=== PATIENT | male | born 1980 | race Caucasian/White ===

== ENCOUNTER 2025-07-01 12:48 | Emergency (ER) | payer OTHER, SELFPAY ==
[2025-07-01 12:50] VITALS: BP 116/87
--- NOTE | 2025-07-01 14:19 | ED.GENMED ---
History of Present Illness
General
Chief Complaint: Cough
Source: patient
Exam Limitations: none
Time Seen by Provider: 07/01/25 14:19
Nursing documentation reviewed up to this point in time: agreed with
History of Present Illness
History of Present Illness:
The patient is a very pleasant 45-year-old man who complains of several days of bodyaches, chills, intermittent fever and cough. Patient reports that his fever spiked today at 101. He denies sick contacts. He denies recent travel and
hospitalization. He denies shortness of breath. He denies chest pain. Patient reports he is able to eat and drink
Past History
Past History
ED Past Medical History: None
ED Past Surgical History: Other
Social History
Tobacco: Non-smoker
Alcohol: Other
Drug: None
Personal:
Living: with family
Employment: Employed
Family History
Family History: Other
Review of Systems
Review of Systems
Allergies reviewed?: Yes
All Other Systems: ROS reviewed and negative except as documented in HPI and ROS
Constitutional: Reports fever, fatigue and chills
EENT: Reports no symptoms
Respiratory: Reports cough
Cardiac: Reports no symptoms
ABD/GI: Reports no symptoms
: Reports no symptoms
Musculoskeletal: Reports no symptoms
Skin: Reports no symptoms
Neurological: Reports no symptoms
Endocrine: Reports no symptoms
Hematologic/Lymphatic: Reports no symptoms
Psychiatric: Reports no symptoms
Phy Exam
Physical Exam
Physical Exam:
Physical Exam
General: no apparent distress, not acutely ill, nontoxic, conversational and smiling
Neck: supple. no meningeal signs. Dry mucous membrane
Heart: Tachycardic, no murmur
Lungs: no acute respiratory distress. clear bilaterally
Abdomen: normal bowel sounds. not tender. no CVAT
Neuro: alert and oriented. no focal neurological deficits
Skin: no rash
Psychiatric: well kept. interactive and cooperative
Extremities: no edema. no calf tenderness. negative homans. good distal pulses
Course
Orders/Labs/Results
Orders:
Orders
07/01/25 12:50
CR Chest - 2 Views Urgent
Comment:
Reason For Exam: cough
07/01/25 15:02
0.9% Sodium Chloride 1000 ml [Nss] 1,000 ml IV BOLUS
Doxycycline [Vibramycin] 100 mg PO NOW STA
07/01/25 15:51
Complete Blood Count/With Diff Urgent
Comprehensive Metabolic Panel Urgent
07/01/25 16:06
Cardiac Monitoring- Treatment ONCE
Abnormal Lab Results
07/01/25
15:51
RBC 4.25 L 10^6/uL
(4.70-6.10)
Hct 38.7 L %
(39.0-52.0)
MCH 32.2 H pg
(27.0-31.0)
RDW 10.9 L %
(11.5-14.5)
Absolute Monos (auto) 1.3 H 10^3/uL
(0.1-0.6)
Lymphocytes % 17.6 L %
(20.5-51.1)
Monocytes % 14.1 H %
(1.7-9.3)
Glucose 104 H mg/dl
(70-99)
Alkaline Phosphatase 143 H U/L
(38-126)
07/01/25 15:51
07/01/25 15:51
Vital Signs
Initial and Last Documented VS:
Initial Vital Signs
Temp Pulse Resp BP Pulse Ox
98.3 F 120 18 116/87 97
07/01/25 12:50 07/01/25 12:50 07/01/25 12:50 07/01/25 12:50 07/01/25 12:50
Last Documented Vital Signs
Temp Pulse Resp BP Pulse Ox
98.3 F 95 20 125/78 99
07/01/25 12:50 07/01/25 17:16 07/01/25 17:16 07/01/25 17:16 07/01/25 17:16
MDM/Problems Addressed
Differential Diagnosis Includes:
Acute viral illness, acute pneumonia
MDM/Problems Addressed:
Patient presents with acute fever and cough
*Radiology
Radiology exam reviewed: preliminary read by ED provider (Right-sided infiltrate)
*Pulse Oximetry
SaO2: 97
Oxygen Mode of Delivery: Room air
Patient hypoxic: no
Comment: Not hypoxic, 97% on room air
*EKG
Interpreted by ED Provider?: NA
*Critical Care Note
Total Time (30-74mins, 75-104mins- exclusive of procedures): Not Applicable
Data Reviewed
Source: patient
Update Note
Update Note:
5:15 PM patient's heart rate is 94. Pulse ox 97% on room air. Patient reports he still feels well. He has not been hypotensive and appears nontoxic and well.
ED Attending Note
-
Portions of this chart may have been created with voice recognition software.� Occasional wrong word or��sound alike� substitutions may have occurred due to the inherent limitations of voice recognition software.
Discharge Plan
Departure
Patient Disposition: Home (Routine Discharge)
Date of Disposition: 07/01/25
Time of Disposition: 17:34
Patient with high blood pressure during this ER visit?: No
Condition: Good
Covid-19: Not Applicable
Discharge Problem:
Pneumonia
Instructions: Pneumonia, Adult (DC)
Prescriptions:
New
doxycycline hyclate 100 mg capsule
100 mg PO BID Qty: 13 0RF
Referrals:
MAYNOR DODGE CRNP [Family Provider, Family Practice]
Activity Restrictions/Additional Instructions:
It is very important that you return with any difficulty breathing, dizziness, lightheadedness or any other concerns such as vomiting. Is very important that you take the antibiotic twice a day for 1 week.
Interventions
Interventions:
*Risk Screen - Suicide Last Done: 07/01/25 12:50
*General Assessment Last Done: 07/01/25 12:50
*ED Influenza Vaccine History Last Done: 07/01/25 12:50
ED- Pulmonary Assessment Last Done: 07/01/25 14:23
Discharge Date and Time
Print Language: GABONESE
[2025-07-01] MEDS: VIBRAMYCIN 100 MG PO (15:55)
[2025-07-01] MEDS: NSS 1000 IV (15:55)
[2025-07-01 16:22] LABS: Hematocrit 38.7 % (39.0-52.0); Hemoglobin 13.7 g/dL (13.0-18.0); Mean Corp Hgb Conc. 35.4 g/dL (33.0-37.0); Mean Corpuscular Volume 91.1 fL (80.0-94.0); Nucleated Red Blood Cells % 0 % (-); Platelet Count 303 10^3/uL (130-400); Red Cell Dist. Width 10.9 % (11.5-14.5)
[2025-07-01 16:28] LABS: ALT (SGPT) 41 U/L (0-50); AST (SGOT) 27 U/L (17-59); Albumin 4.4 g/dl (3.5-5.0); Alkaline Phosphatase 143 U/L (38-126); Blood Urea Nitrogen 10 mg/dl (9-20); Calcium 9.2 mg/dl (8.4-10.2); Carbon Dioxide 29 mmol/L (22-30); Chloride 101 mmol/L (98-107); Glucose 104 mg/dl (70-99); Potassium 4.4 mmol/L (3.5-5.1); Sodium 137 mmol/L (135-145); Total Protein 7.9 g/dl (6.3-8.2); eGFR > 60.00
[2025-07-01 17:16] VITALS: BP 125/78
[2025-07-01 18:32] VITALS: BP 128/83
== END 2025-07-01 19:32 | disposition home or self-care (01) ==
LOC: EMR 12:48
PROVIDERS: EMERGENCY PHYSICIAN Emergency Medicine; FAMILY PHYSICIAN Nurse Practitioner Gerontology
DX: J18.9 Pneumonia, unspecified organism (principal)
CPT/HCPCS: 96360; 99284; 71046; 80053; 85025